=== PATIENT | female | born 1995 | race Caucasian/White ===

== ENCOUNTER 2020-01-10 09:40 | Emergency (ER) | payer OTHER, SELFPAY ==
[2020-01-10 09:52] VITALS: BP 109/69; PULSE 90; RESP 18; TEMP 36.8; O2SAT 97
--- NOTE | 2020-01-10 10:07 | ED.BACK ---
HPI - Back Pain/Injury General Chief Complaint: Back Pain/Injury Stated Complaint: Threw out back Time Seen by Provider: 01/10/20 10:01 Source: patient and RN notes reviewed Mode of arrival: ambulatory Limitations: no limitations Related Data Home Medications Medication Instructions Recorded Confirmed albuterol sulfate 2 inh INHALATION DIRECTED 01/10/20 01/10/20 drospirenone-ethinyl estradiol 1 tablet PO DAILY 01/10/20 01/10/20 [Jeetvi (28)] linaclotide [Linzess] 45 mcg PO DAILY 01/10/20 01/10/20 oxcarbazepine [Oxtellar XR] 600 mg PO DAILY 01/10/20 01/10/20 Allergies Allergy/AdvReac Type Severity Reaction Status Date / Time hydrocodone AdvReac Intermediate Vomiting Verified 12/02/16 09:37 Exam Narrative: Exam Narrative: GENERAL: Well-appearing, well-nourished, and in no acute distress. Patient moves from sitting to standing guarding her back. HEAD: Normocephalic, atraumatic. EYES: EOMI. No redness or drainage. Conjunctivae normal. ENT: Mucous membranes pink and moist. NECK: Normal AROM. CHEST: No respiratory distress. MUSCULOSKELETAL: No bony tenderness of the spine. No right Paraspinal muscle tenderness. No right SI joint tenderness. +Left lower lumbar paraspinal muscle tenderness that extends to the left SI joint.Distal sensation intact. Saddle sensation intact. Capillary refill normal. Pedal pulses normal. Foot push and pulls equal and strong. EXTREMITIES: Normal range of motion. No edema. SKIN: Warm, dry, no rash. Capillary refill normal. Normal skin turgor. NEURO: No focal deficits. Alert and oriented x3. Gait steady. PSYCH: Normal affect. No signs of depression or anxiety. Course Vital Signs Vital signs: Vital Signs Temperature 98.3 F 01/10/20 09:52 Pulse Rate 90 01/10/20 09:52 Respiratory Rate 18 01/10/20 09:52 Blood Pressure 109/69 01/10/20 09:52 Pulse Oximetry 97 01/10/20 09:52 Temperature 98.3 F 01/10/20 09:52 Pulse Rate 90 01/10/20 09:52 Respiratory Rate 18 01/10/20 09:52 Blood Pressure 109/69 01/10/20 09:52 Pulse Oximetry 97 01/10/20 09:52 Reviewed MDM - Back Pain/Injury Differential Diagnosis Differential diagnosis: Likely lumbar radiculopathy, sciatica, strain of lumbar region and thoracic back pain Critical Care Time Critical Care Time Critical Care Time: No Discharge Plan Discharge Clinical Impression: Strain of lumbar region Qualifiers: Encounter type: initial encounter Qualified Code(s): S39.012A - Strain of muscle, fascia and tendon of lower back, initial encounter Sciatica Qualifiers: Laterality: left Qualified Code(s): M54.32 - Sciatica, left side Patient Disposition: Home, Self-Care Condition: Stable Instructions: Sciatica (ED), Low Back Strain (ED) Additional Instructions: Please take the Flexeril and Prednisone as directed. Do not drive within 8 hours of taking the Flexeril as it can make you drowsy. Please start taking an anti-inflammatory such as Aleve or ibuprofen to help with pain and inflammation. No heavy lifting, exercise, running or jumping until symptoms resolve. Follow-up with your doctor in 1 week if symptoms are not improving. As discussed, if you do Develop numbness or tingling in your genitals or legs, or loss of your bowel or bladder control, please go to the ER immediately. Patient Language: Syriac Prescriptions: New cyclobenzaprine 10 mg tablet 10 mg PO TID PRN (Reason: muscle spasm) Qty: 20 RF: 0 prednisone 20 mg tablet 40 mg PO DAILY 5 Days Qty: 10 RF: 0 No Action albuterol sulfate 90 mcg/actuation HFA aerosol inhaler 2 inh INHALATION DIRECTED RF: 0 drospirenone-ethinyl estradiol [Jeetvi (28)] 3-0.02 mg tablet 1 tablet PO DAILY RF: 0 Linzess 145 mcg capsule 45 mcg PO DAILY RF: 0 Oxtellar XR 600 mg tablet extended release 24 hr 600 mg PO DAILY RF: 0 Follow-up/Referrals: Nikki,Darius Panda MD [Primary Care Provider] - Time of Disposit
== END 2020-01-10 10:15 | disposition home or self-care (01) ==
PROVIDERS: Emergency Provider Nurse Practitioner; PCP Internal Medicine
DX: S39.012A Strain of muscle, fascia and tendon of lower back, initial encounter (principal); M54.32 Sciatica, left side; X50.9XXA Other and unspecified overexertion or strenuous movements or postures, initial encounter; Y93.B9 Activity, other involving muscle strengthening exercises
CPT/HCPCS: 99203; G0463

== ENCOUNTER 2020-11-23 09:18 | Emergency (ER) | payer OTHER, SELFPAY ==
--- NOTE | ~2020-11-23 | CT_ITS ---
EXAMINATION: CT abdomen pelvis w con DATE: 11/23/2020 11:37 INDICATION: Right lower quadrant abdominal pain. TECHNIQUE: Computed tomography (CT) of the abdomen and pelvis was performed with 100 mL Omnipaque 350 intravenous contrast. Automated exposure control and iterative reconstruction technique were employe d. The dose-length product was 440.62 mGy-cm. COMPARISON: None. FINDINGS: The visualized portions of the lung bases demonstrate minimal atelectasis. No pleural effus ion. The heart size is normal. No pericardial effusion. The liver, gallbladder, spleen, pancreas, adr enal glands, and kidneys are normal. There are no dilated loops of bowel. The appendix is not visuali zed. There are no pathologically enlarged lymph nodes. There is no free intraperitoneal fluid. There is a 3.3 cm hemorrhagic cyst in left ovary with fluid/fluid level. There is mild lumbar spondylosis. IMPRESSION: 1. 3.3 cm hemorrhagic cyst in left ovary. Reviewed, dictated and finalized at location B.
--- NOTE | ~2020-11-23 | US_ITS ---
EXAMINATION: US abdomen complete DATE: 11/23/2020 10:55 INDICATION: Abdominal pain. TECHNIQUE: Multiple grayscale and Doppler ultrasound images of the abdomen were obtained. COMPARISON: None FINDINGS: The visualized portions of the head and body of the pancreas are normal. The liver is hamilton l without focal lesion. There is normal flow in main portal vein. The gallbladder is normal in size. No gallstones or gallbladder wall thickening. There was no sonographic Henry sign. The common duct i s normal and measures 2 mm. Abdominal aorta is normal in caliber. Inferior vena cava is normal. The k idneys are normal in size. The spleen is normal in size. IMPRESSION: 1. Normal complete abdomen ultrasound. Reviewed, dictated and finalized at location B.
[2020-11-23 09:27] VITALS: BP 112/75; PULSE 74; RESP 20; TEMP 36.6; O2SAT 100
--- NOTE | 2020-11-23 09:42 | PC.NURSE ---
Arrives ambulatory steady gait from triage accompanied by mother, c/o recent R side abd pain and tenderness, was sent by [facility] for imaging (hx endometriosis, ovarian cysts). +nausea -V/D, states abd pain worse when lying flat. Denies urinary s/s, +intermittent chills
--- NOTE | 2020-11-23 10:13 | PC.NURSE ---
Pt off floor to US via WC
[2020-11-23 10:23] LABS: Basophils Percent Auto 0.6 % (0.2-1.2); Eosinophils Absolute Auto 0.5 K/mm3 (0-0.3); Eosinophils Percent Auto 8.7 % (0-4.4); Hematocrit 41.2 % (37.0-47.0); Hemoglobin 13.9 g/dL (12.0-15.0); Immature Granulocyte Absolute 0.01 K/mm3 (0.00-0.031); Immature Granulocyte Percent A 0.2 % (0-0.5); Lymphocytes Absolute Auto 1.37 K/mm3 (0.9-3.2); Lymphocytes Percent Auto 26.4 % (18.3-44.2); Mean Corpuscular HGB Conc 33.7 g/dl (32-36); Mean Corpuscular Hemoglobin 29.6 pg (26-34); Mean Corpuscular Volume 87.8 fl (80-100); Mean Platelet Volume 12.6 fl (7.4-10.4); Monocytes Absolute Auto 0.5 K/mm3 (0.1-0.6); Monocytes Percent Auto 8.7 % (2.6-8.5); Neutrophils Absolute Auto 2.9 K/mm3 (1.3-6.7); Neutrophils Percent Auto 55.4 % (45.5-73.1); Platelet Count Result 138 k/mm3 (150-375); Red Blood Count 4.69 M/mm3 (4.2-5.4); Red Cell Distribution Width 12.3 % (11.5-14.5); White Blood Count 5.2 K/mm3 (4.5-10.0)
[2020-11-23 10:29] LABS: Add Urine Microscopic? YES; Appearance Urine Cloudy (Clear); Bacteria Urine Trace /hpf; Bilirubin Urine Negative (Negative); Blood Urine Negative (Negative); Color Urine Yellow (Yellow); Glucose Urine UA Negative (Negative); Ketones Urine Negative (Negative); Leukocyte Esterase Ur Negative LEU/UL (Negative); Mucus Urine Rare /lpf; Nitrate Urine Negative (Negative); Protein Urine 1+ mg/dL (Negative); RBC Urine 0-2 /hpf (0-2); Specific Grav Ur 1.023 (1.001-1.035); Squamous Epithelial Cell Urine Many /hpf (Few); Urobilinogen Urine Negative mg/dL (<2.0); WBC Urine 0-3 /hpf
[2020-11-23 10:37] LABS: Alanine Aminotransferase 22 U/L (4-35); Albumin Level 4.4 g/dL (3.5-5.1); Alkaline Phosphatase 62 U/L (38-126); Anion Gap 5 mmol/L (8-16); Aspartate Amino Transferase 30 U/L (14-36); Bilirubin,Total 0.1 mg/dL (0.2-1.3); Blood Urea Nitrogen 10 mg/dL (7-17); Calcium 9.4 mg/dL (8.4-10.2); Carbon Dioxide 27 mmol/L (22-30); Chloride 106 mmol/L (98-107); Estimated CRCL calculation 103 ml/min; Estimated Glomerular Filt Rate > 60; Glucose 87 mg/dL (65-105); Lipase 68 U/L (23-300); Potassium 4.1 mmol/L (3.4-5.0); Sodium 138 mmol/L (137-145)
[2020-11-23] MEDS: SODIUM CHLORIDE 0.9% IV 1,000 ML 999 ML IV CONT (10:55)
[2020-11-23] MEDS: ONDANSETRON INJ 4 MG/2 ML VIAL IV PUSH (10:56)
[2020-11-23] MEDS: FAMOTIDINE 20 MG/2 ML VIAL IV PUSH (10:56)
[2020-11-23 11:13] VITALS: BP 103/61; PULSE 63; RESP 18; O2SAT 98
--- NOTE | 2020-11-23 11:25 | PC.NURSE ---
Pt off floor to CT via cart. ED PA aware pt stated only upper abd was imaged in US
[2020-11-23 12:20] VITALS: BP 111/59; PULSE 71; RESP 17; O2SAT 100
--- NOTE | 2020-11-23 12:23 | ED.GENADULT ---
HPI - General Adult General Chief complaint: Abdominal Pain Stated complaint: ovarian cyst, rlq abd pain Time Seen by Provider: 11/23/20 09:31 Source: patient, family and RN notes reviewed Mode of arrival: ambulatory Limitations: no limitations History of Present Illness HPI narrative: Patient is a 25-year-old female who presents to emergency department for evaluation of abdominal pain that is generalized coupled with loose stools and nausea and chills patient has history of endometriosis and ovarian cyst followed by Dr. Sonny Aparicio they had contacted his office and were restricted to come to the emergency department for evaluation. Patient notes that the pain originates in the right lower quadrant of the abdomen and then radiates upwards. Patient is not taken anything for her symptoms and on arrival in the emergency department is in no distress and does not appear uncomfortable patient denies vaginal bleeding does note some clear discharge which she states is typical for her. Denies urinary symptoms rectal bleeding or melena Related Data Home Medications Medication Instructions Recorded Confirmed albuterol sulfate 2 inh INHALATION DIRECTED 01/10/20 01/10/20 drospirenone-ethinyl estradiol 1 tablet PO DAILY 01/10/20 01/10/20 [Gianvi (28)] linaclotide [Linzess] 45 mcg PO DAILY 01/10/20 01/10/20 oxcarbazepine [Oxtellar XR] 600 mg PO DAILY 01/10/20 01/10/20 Allergies Allergy/AdvReac Type Severity Reaction Status Date / Time hydrocodone AdvReac Intermediate Vomiting Verified 12/02/16 09:37 Review of Systems Review of Systems: All systems reviewed & are unremarkable except as noted in HPI and below PMFSH Past Medical History Medical History (Updated 11/23/20 @ 12:31 by Israel Monte PA-C) Endometriosis Surgical History Surgical History (Updated 11/23/20 @ 12:26 by Israel Monte PA-C) History of laparoscopy Social History Social History (Updated 11/23/20 @ 12:26 by Israel Monte PA-C) Smoking status: Never smoker Gender identity (if verbalized by the patient): Female Exam Narrative: Exam Narrative: GENERAL: Well-appearing, well-nourished, and in no acute distress. HEAD: Normocephalic, atraumatic. EYES: PERRLA and EOMI. ENT: Nares clear, no rhinorrhea or epistaxis. Mucous membranes moist. CHEST: Clear to auscultation. No respiratory distress. No wheezes rales or rhonchi HEART: Regular rate and rhythm. No murmur heard. Normal peripheral pulses. ABDOMEN: Soft, generalized tenderness of the abdomen, nondistended EXTREMITIES: Normal range of motion. No edema. SKIN: Warm, dry, no rash. NEURO: No focal deficits. Alert and oriented x3. PSYCH: Normal mood and affect. Course Course Emergency Course: Patient present with her mother in the room she was hydrated and given medications in the emergency department with improvement she is afebrile nontoxic-appearing no distress ABCs and vital signs are intact and stable patient aware of discussion with her power bender operator Dr. Sonny Aparicio who was notified of her condition and presentation and findings and would like for her to follow-up outpatient. Patient likely with ovarian cyst. Patient was evaluated with ultrasound and CAT scan. The blood work and the ultrasound were unremarkable. Patient was scanned to reassure that there was no other further etiology in the abdomen for her findings given that she did have right lower quadrant pain and concern for possible appendicitis. Patient agrees to follow-up on an outpatient basis. The diarrhea that she is experiencing and nausea and chills could be related to irritation of the abdomen from the ovarian cyst. She has been given strict instructions and reasons to return to the emergency department and agrees with this plan. Patient lives at home with her mother who will help care for her Consultations Consultation #1: Discussed case with Dr. Balderrama who will follow the patient in clinic Date: 11/23/20 Time: 12:28
[2020-11-23 12:37] VITALS: BP 111/60; PULSE 61; RESP 20; O2SAT 99
== END 2020-11-23 12:39 | disposition home or self-care (01) ==
PROVIDERS: Emergency Medicine Emergency Medical Services; Emergency Provider Emergency Medicine; PCP Internal Medicine
DX: N83.202 Unspecified ovarian cyst, left side (principal); N80.9 Endometriosis, unspecified
CPT/HCPCS: 36415; 74177; 76700; 80053; 81001; 81025; 83690; 85025; 96361; 96374; 96375; 99284; J0131; J2405; J7030; Q9967

== ENCOUNTER → 2020-12-01 04:47 | Outpatient (CLI) | payer OTHER, SELFPAY ==
[2020-12-01 20:06] LABS: SARS-CoV-2 RNA PCR Negative
== END ==
PROVIDERS: PCP Internal Medicine; Visit Provider Obstetrics & Gynecology
DX: Z01.812 Encounter for preprocedural laboratory examination (principal); Z20.822 Contact with and (suspected) exposure to COVID-19
CPT/HCPCS: C9803; U0003; U0005

== ENCOUNTER 2020-12-01 09:51 | Outpatient (CLI) | payer OTHER, SELFPAY | END 2020-12-01 09:52 | disposition home or self-care (01) | LOC: ANHSURGERY 09:54 | PROVIDERS: PCP Internal Medicine; Visit Provider Obstetrics & Gynecology | DX: Z01.812 Encounter for preprocedural laboratory examination (principal); R10.2 Pelvic and perineal pain | CPT/HCPCS: 36415; 86850; 86900; 86901 ==

== ENCOUNTER 2020-12-04 02:25 | Day surgery (SDC) | payer OTHER, SELFPAY ==
[2020-11-25 13:29] VITALS: BMI 23.3
--- NOTE | 2020-12-01 12:59 | PM.IMHP ---
H&P: HPI History of Present Illness Date/Time: 12/01/20 12:59 4-year-old 0 admitted for diagnostic laparoscopy. She has pain discomfort and dyspareunia. She has had negative STD testing. She had an ultrasound that showed a 3.3cm hemorrhagic cyst in the left ovary. Her pain has been unrelenting. She received the ACOG handout entitled laparoscopy. Risks and benefits including exclusive of , aspiration pneumonia, bleeding, transfusion, perforation to bowel, bladder, ureters, or other internal organs with need for open laparotomy reviewed. She had all questions answered in asked to proceed Chief Complaint: chronic pelvic pain and dyspareunia Review of Systems Review of Systems: All systems reviewed & are unremarkable except as noted in HPI and below PMFSH Past Medical History Medical History Endometriosis Surgical History Surgical History History of laparoscopy Social History Social History Smoking status: Never smoker Alcohol intake: never Substance use: never Substance use type: does not use Gender identity (if verbalized by the patient): Female Spiritual care concerns: No Meds Home Medications and Allergies Home Medications Medication Instructions Recorded Confirmed Type albuterol sulfate 2 inh INHALATION Q6H PRN 01/10/20 11/25/20 History cyclobenzaprine 10 mg PO TID PRN #20 tablet 01/10/20 11/25/20 Rx drospirenone-ethinyl estradiol 1 tablet PO DAILY 01/10/20 11/25/20 History [Gianvi (28)] oxcarbazepine [Oxtellar XR] 600 mg PO DAILY 01/10/20 11/25/20 History bupropion HCl 150 mg PO DAILY 11/25/20 11/25/20 History Allergies Allergy/AdvReac Type Severity Reaction Status Date / Time hydrocodone AdvReac Intermediate Vomiting Verified 11/25/20 13:24 Exam Const: General: no acute distress Eyes: General: appearance normal, both eyes and all related structures Neck: Neck: supple and no JVD Thyroid: thyroid normal Resp: Effort & Inspection: normal respiratory effort Auscultation: clear to auscultation bilaterally Cardio: Rate: regular rate Rhythm: regular rhythm GI: Inspection: non-distended GI Palp: Yes Soft to palpation, No Tenderness to palpation present (GI) and No Guarding due to palpation present (GI) Auscultation: normal bowel sounds : External Female Exam: normal external appearance Speculum Exam - Vagina: normal appearance of the vagina Speculum Exam - Cervix: normal appearance of the cervix Bimanual exam- vagina & uterus: non-tender Bimanual Exam- Adnexa, other: adnexae mobile and Adnexal mass present on the left Skin: General skin exam: no rashes or lesions noted Extrem: General: normal to inspection and no edema Psych: Mental Status: mental status grossly normal Affect: normal affect Assessment and Plan Additional Plan impression: Left ovarian cyst and chronic and severe pelvic pain Plan: Diagnostic laparoscopy
--- NOTE | 2020-12-03 12:46 | WPDANESEPPF ---
Anes - Initial Pre Proc Eval Procedure: Operation Date: 12/04/20 12:30 Proposed Procedures p Diagnostic Laparoscopy - Blayne Andrew MD Date/Time: 12/03/20 12:46 Surgeon: Blayne Andrew MD Pre Op Diagnosis: pelvic pain Patient Data Age: 25 Gender: F Height: 1.78 m Weight: 73.9 kg Allergies Allergy/AdvReac Type Severity Reaction Status Date / Time hydrocodone AdvReac Intermediate Vomiting Verified 12/04/20 11:35 Home Medications Medication Instructions Recorded Confirmed Type albuterol sulfate 2 inh INHALATION Q6H PRN 01/10/20 12/04/20 History cyclobenzaprine 10 mg PO TID PRN #20 tablet 01/10/20 12/04/20 Rx drospirenone-ethinyl estradiol 1 tablet PO DAILY 01/10/20 12/04/20 History [Jeetvi (28)] oxcarbazepine [Oxtellar XR] 600 mg PO DAILY 01/10/20 12/04/20 History bupropion HCl 150 mg PO DAILY 11/25/20 12/04/20 History oxycodone-acetaminophen [Percocet] 1 tablet PO Q4H PRN #20 tablet 12/04/20 Rx Patient hx anesthesia problems: none Family hx anesthesia problems: none PMFSH Past Medical History Medical History (Updated 12/04/20 @ 06:46 by Blayne Andrew MD) Anxiety Asthma Depression Endometriosis Epilepsy Surgical History Surgical History History of laparoscopy Social History Social History Smoking status: Never smoker Alcohol intake: never Substance use: never Substance use type: does not use Living arrangements: with family Gender identity (if verbalized by the patient): Female Spiritual care concerns: No Anes - Eval Final PreProcedure Day of Procedure 12/03/20 12:46 Patient weight: normal Heart: regular rate and rhythm Lungs: clear to auscultation and normal air movement Airway: Mallampati scale class II Neurological: alert and oriented Last oral intake: >/= 8 hours ASA classification: III Emergent: no Anesthetic plan: proceed Anesthesia type and monitoring: general ETT and standard monitoring Informed Consent: The patient's anesthetic plan and its attendant risks and benefits were discussed with the patient/family/POA. Questions were solicited and answers provided to the satisfaction of the patient/family/POA.
[2020-12-04] VITALS (8 sets, daily range): BP systolic 97–120; BP diastolic 59–75; PULSE 58–86; RESP 11–16; TEMP 36.3–37; O2SAT 98–100
--- NOTE | 2020-12-04 06:44 | WPDHPUPDATE1 ---
History and Physical Update Update Date/Time: 12/04/20 06:44 History and Physical has been reviewed, including an updated exam of the patient. There are NO changes in the patient's condition. Risks, benefits, and alternatives have been discussed and questions answered. Patient agrees to proceed with procedure.
[2020-12-04] MEDS: ACETAMINOPHEN 500 MG TABLET 1000 MG PO (11:19)
[2020-12-04] MEDS: KETOROLAC 15 MG/ML VIAL (*BKC) IV PUSH (11:19)
[2020-12-04] MEDS: LACTATED RINGERS 1,000 ML 30 ML IV CONT ×2 (11:20→13:24)
[2020-12-04] MEDS: SCOPOLAMINE 1.5 MG PATCH TRANSDERM (12:07)
[2020-12-04] MEDS: FAMOTIDINE 20 MG/2 ML VIAL IV PUSH (12:08)
--- NOTE | 2020-12-04 13:14 | PM.PROC ---
Procedure Note - Detailed Date of procedure: 12/04/20 Pre-op diagnosis: pelvic pain Surgeon: Blayne Andrew MD Postop diagnosis: Pelvic pain/endometriosis/left hemorrhagic cyst Anesthesia: General endotracheal Procedure: Laparoscopy/destruction of left ovarian cyst/destruction of endometriosis Complications: None Findings: A large hemorrhagic cyst on the left. Normal-appearing ovaries and tubes. Small area of endometriosis along the left and right uterosacral ligament EBL: 5cc Description of procedure: Patient was prepped and draped in the normal sterile fashion placed in dorsal lithotomy position. Under excellent general endotracheal anesthesia weighted speculum placed posterior fornix vagina. Anterior lip of the cervix was grasped with a single-tooth tenaculum. The Brooks's cannula was inserted in the cervix and attached to the single-tooth. This was to be used later for uterine manipulation. The bladder emptied of clear urine. The weighted speculum was removed and gloves were changed. An infraumbilical incision made and the Veress needle passed in the abdomen. The abdomen filled with CO2 gas to 15 mercury. The 5mm trocar advanced under direct visualization assuring no injury. The patient placed in Trendelenburg and a suprapubic incision made. The 5mm trocar advanced under direct visualization assuring no injury. The above findings were seen. [id number] of serosanguineous fluid was in the cul-de-sac and this was irrigated. Small areas of endometriosis were seen along the right and left uterosacral ligament and these were cauterized at 35 w per 2nd with monopolar cautery. A large hemorrhagic cyst was seen on the left and this was opened in linear in fashion and drained of bloody fluid. Irrigation again undertaken. No other abnormalities were seen. The lower site removed. The gas removed from the abdomen. The upper site removed and the incisions closed with 4 O Monocryl and glue. The instruments removed from the vagina. The patient went to recovery in satisfactory condition. All sponge, needle, instrument counts were correct. There were no immediate complications
[2020-12-04] MEDS: fentaNYL CITRATE INJ (*CRX) 100 MCG/2 ML VIAL 25 MCG IV PUSH ×2 (14:02→14:05)
[2020-12-04] MEDS: oxyCODONE HCL (*CRX) 5 MG TAB IR PO (14:42)
== END 2020-12-04 15:25 | disposition home or self-care (01) ==
PROVIDERS: PCP Internal Medicine; Visit Provider Obstetrics & Gynecology
PROC: (CPT 49320; principal; 2020-12-04 12:30)
DX: R10.2 Pelvic and perineal pain (principal); N80.3 Endometriosis of pelvic peritoneum; N83.202 Unspecified ovarian cyst, left side; G40.909 Epilepsy, unspecified, not intractable, without status epilepticus; J45.909 Unspecified asthma, uncomplicated; F41.8 Other specified anxiety disorders; Z79.51 Long term (current) use of inhaled steroids
CPT/HCPCS: 58662; 36415; 86850; 86900; 86901; A9270; C9803; J0330; J1100; J1885; J2250; J2405; J2704; J3010; J7030; J7120; U0003; U0005

== ENCOUNTER 2022-01-01 19:26 | Emergency (ER) | payer BC, SELFPAY ==
[2022-01-01 19:35] VITALS: BP 107/74; PULSE 91; RESP 18; TEMP 36.9; O2SAT 100
--- NOTE | 2022-01-01 19:35 | ED.EAR ---
HPI - Ear Problem General Stated complaint: Ear Problem Time Seen by Provider: 01/01/22 19:36 Source: patient Mode of arrival: ambulatory Limitations: no limitations History of Present Illness HPI Narrative: Ms. Carrion is a 26-year-old female patient presenting to the clinic today with complaints of right ear discomfort. She reports that she felt as though she had water in her ear from swimming and she used a Q-tip and that made her symptoms worse. She denies any fever or chills Related Data Home Medications Medication Instructions Recorded Confirmed drospirenone 3 mg-ethinyl 1 tablet PO DAILY 01/10/20 12/04/20 estradiol 0.02 mg tablet (Gianvi (28)) oxcarbazepine 600 mg 600 mg PO DAILY 01/10/20 12/04/20 tablet,extended release 24 hr (Oxtellar XR) bupropion HCl 150 mg 24 hr tablet, 150 mg PO DAILY 11/25/20 12/04/20 extended release Allergies Allergy/AdvReac Type Severity Reaction Status Date / Time latex Allergy Unknown Verified 01/01/22 19:41 hydrocodone AdvReac Intermediate Vomiting Verified 01/01/22 19:40 Review of Systems Review of Systems: Pertinent positives per HPI. Patient denies any fever, chills, rash, headache, visual changes, dizziness, cough, runny nose, sore throat, shortness of breath, chest pain, palpitations, nausea, vomiting, diarrhea, constipation, abdominal pain, or any urinary issues. PMFSH Past Medical History Medical History (Updated 01/01/22 @ 19:47 by Michael Holcomb APRN) Anxiety Asthma Depression Endometriosis Epilepsy Surgical History Surgical History History of laparoscopy Social History Social History Smoking status: Never smoker Alcohol intake: never Substance use: never Substance use type: does not use Gender identity (if verbalized by the patient): Female Spiritual care concerns: No Comments At the time of my signature, I reviewed and agree with the nursing past medical, surgical, social, and family history. There is no relevant family history pertinent to the patient complaint. Exam Narrative: General: Well-developed, well nourished, in no apparent distress Head: Normocephalic, atraumatic Eyes: Pupils equally round and reactive to light bilaterally, EOM intact, sclera and conjunctive clear, no discharge, lids normal Ears: Left TMs intact and clear, left ear canals clear, right ear canal obstructed with cerumen, ear lavage performed, ear lavage successful ,right TM intact and clear,no drainage, grossly hearing normal. Nose: Nares patent, no discharge, no inflammation, no sinus tenderness. Mouth: Oropharynx without lesions or masses, good dentition, MMM. Neck: Supple, trachea midline, no enlargement of anterior or posterior cervical nodes, no thyroid masses or goiter palpable. Cardio: Regular rate and rhythm, s1 and s2 normal, no murmur appreciated. Resp: Clear to auscultation bilaterally anteriorly and posteriorly, no rhonchi, rales, wheezing or rubs Course Course Emergency Course: Portions of this record may have been created with voice recognition software. Level of Care: Express Care Visit Vital Signs Vital signs: Vital signs reviewed Procedures Ear Wax Removal Right Ear: Ear Wax Removal Date: 01/01/22 Ear Wax Removal Time: 19:48 Results: Re-examined: cerumen removed completely TM Examination: TM(s) intact, normal appearance Ear Canal Exam: atraumatic Patient Tolerated Procedure: well Complications: no problems Technique: ear canal irrigated Additional Comments: Verbal consent obtained for ear lavage. Ear lavage performed to the right ear. Ear lavage was successful and all cerumen was removed. Right TM intact and clear. No complication Medical Decision Making MDM Narrative Medical decision making narrative: At the time of visit patient
== END 2022-01-01 19:52 | disposition home or self-care (01) ==
PROVIDERS: Emergency Provider Nurse Practitioner Family; PCP Internal Medicine
DX: H61.21 Impacted cerumen, right ear (principal); J45.909 Unspecified asthma, uncomplicated; N80.9 Endometriosis, unspecified; G40.909 Epilepsy, unspecified, not intractable, without status epilepticus; F41.9 Anxiety disorder, unspecified; F32.A Depression, unspecified
CPT/HCPCS: 69209; 99212; G0463

== ENCOUNTER 2024-08-06 08:24 | Outpatient (CLI) | payer BC, SELFPAY ==
--- NOTE | ~2024-08-06 | XR_ITS ---
EXAMINATION: XR barium swallow DATE: 08/06/2024 09:06 INDICATION: Esophagitis. TECHNIQUE: The patient drank thick barium, gas-producing crystals, and thin barium. Fluoroscopic spot radiographs of the hypopharynx and esophagus were obtained. Fluoroscopy exposure time was 2.5 minut es. COMPARISON: None. FINDINGS: The pharynx is symmetric and without evidence of mass lesion or mucosal irregularity. The e sophagus is normal without mass or stricture. Esophageal motility is normal. There is no hiatal herni a. There was no gastroesophageal reflux with provocative maneuvers. IMPRESSION: 1. Normal esophagram. Reviewed, dictated and finalized at location A. ICULUM WRITER IMPRESSION: 1. Normal esophagram.
--- OUTSIDE RECORDS SUMMARY | 2024-08-08 16:12 | XMS_ITS | Clinical Summary ---
Author Organization [facility] Address [address] [place] [address] Care Team Providers Care Staff Field Engineer Name Role Phone Darius Jordan MD Primary Care Provider Allergies Active Allergy Reactions Criticality Noted Date Comments Amoxicillin Rash Medium 06/23/2024 Hydrocodone Nausea only,Vomiting Reaction: Nausea, Vomiting, Latex Rash Reaction: Rash, Venlafaxine Anxiety,Other (See comments) Reaction: anxiety, depression worse, insomnia, Medications albuterol HFA (ProAir HFA) 90 mcg/actuation inhalerIndication s:Mild intermittent asthma without complication Inhale 2 puff by inhalation route every 4-6 hours as needed PRN 1 each 11 3 Active escitalopram (LEXAPRO) 10 mg tablet Take 1 tablet (10 mg total) by mouth daily 30 tablet 11 4 Active lamoTRIgine (LaMICtal) 100 mg tabletIndications :Epilepsy with partial complex seizures (HCC) Take 1 tablet (100 mg total) by mouth daily 90 tablet 3 4 07/04/20 25 Active Active Problems Problem Noted Date Diagnosed Date Periumbilical abdominal pain 02/07/2023 Assessment & Plan (02/07/2023 8:47 AM CDT): New Not at goal Poct negative Ddx appendicitis, peptic ulcer Ct abdomen and pelvis w/o contrast stat and hold Continue pepcid, recommend nexium F/u in [address] results Other chest pain 03/24/2022 Assessment & Plan (02/07/2023 8:46 AM CDT): Unlikely ACS EKG in office normal Likely GI related Will get trop cmp mag and phos and address abdominal pain Assessment & Plan (03/24/2022 12:15 PM CDT): 2/2 to anxiety EKG normal Manage anxiety. See a/p on anxiety Chronic bilateral low back pain with left-sided sciatica 06/18/2021 Assessment & Plan (07/19/2021 8:40 AM INFORMATICA ARCHITECT): Stable Instructed to be mindful of activities that affect her back. Encouraged to strengthen her core to help with the back pain. Modify activity as tolerated Continue with anti-inflammatory medication prn Physical therapy starts this week If no improvement can make appointment with orthopedics for further management F/u prn Assessment & Plan (06/18/2021 8:54 AM INFORMATICA ARCHITECT): Xray in October showed degenerative disease. Ordered an MRI Referral to physical therapy Naproxen 500mg bid with food F/u in 1 month after physical therapy, if no improvement can consider referral to pain management or ortho depending on results of mri Current moderate episode of major depressive disorder without prior episode 04/12/2019 Assessment & Plan (04/15/2024 9:44 AM CDT): Continue lexapro 10 mg every day Follow up pcp Dysmenorrhea 02/07/2014 Overview (10/27/2016): Dysmenorrhea Asthma 01/07/2013 Overview (10/27/2016): Asthma Assessment & Plan (08/21/2017 10:58 AM INFORMATICA ARCHITECT): Prednisone to be taken in a tapered fashion. Albuterol nebulizers up to 3 times daily as needed. Patient has nebulizer machine at home. New script for solution sent to pharmacy. Close follow-up here with absolutely any change in, worsening, or non improvement in condition. Epilepsy with partial complex seizures 3 Overview (08/18/2017): 07/[address] Gamboa restarted oxycarbazepine and will see back Sep 2017 for repeat EEG; rec MRI brain. Assessment & Plan (04/15/2024 9:38 AM CDT): Stable continue lamictal 100 mg every day Following with neuro Assessment & Plan (01/22/2024 12:05 PM CDT): Stable continue lamictal 100 mg every day Following with neuro Assessment & Plan (11/30/2023 9:17 AM CDT): Continue neurology follow up Continue trileptal 300 mg bid or changes as per neuro Last note indicated increasing doses of lamictal and tapering off trileptal Recommend neuro f/u as indicated by them Anxiety 03/02/2012 Overview (10/27/2016): Anxiety Assessment & Plan (03/24/2022 12:15 PM CDT): Worried about flying Will send a few tablets of xanax for flying Increased wellbutrin to 300mg daily. (kept the 150mg so she can go back to 150mg if she does not like how it makes her feel) F/u w/ pcp Assessment & Plan (06/30/2017 2:55 PM INFORMATICA ARCHITECT): Controlled on current medication regimen. She states she is not taking BuSpar- never picked it up. She continues on fluoxetine 20 mg daily. She states things will settle down now that the finals are complete. Assessment & Plan (01/16/2017 2:32 PM CDT): Well controlled on current medication regimen. Patient will continue as previously directed. We sent her medications applying for a 90 day supply rather than 30 day supply for cost savings. Resolved Problems Problem Noted Date Diagnosed Date Resolved Date Abdominal discomfort 12/24/2021 10/2 022 Assessment & Plan (12/24/2021 10:01 AM CDT): LLQ Slightly improving Can continue with pepcid and avoiding greasy foods Possible IBS but no diarrhea or constipation so less likely Possibly Stress related Ct abdomen and pelvis w/o contrast, evaluate ovaries If progressively worsening will consider sending to GI Acute gastritis without hemorrhage 12/10/2021 12/24/2021 Assessment & Plan (12/10/2021 9:40 AM CDT): pepcid sent to the pharmacy to help with symptoms If no improvement will consider h. Pylori test If negative will start omeprazole for 8 weeks If no improvement will consider imaging and sending to GI. F/u in 2 weeks Papular rash, localized 03/17/2020 09/0 07/2019 Assessment & Plan (03/17/2020 2:08 PM CDT): Faint, papular rash w/o known etiology. Contact dermatitis VS milia crystallina. Recommending daily H2 antihistamine, p.r.n. Benadryl and topical, low potency corticosteroid cream b.i.d. times 10-14 days with further evaluation with ongoing sx. Utilizing hypoallergenic face washes and avoiding any use of makeup her facial cream recommended. S/Es of medication and precautions with steroid topical cream discussed. Achilles tendinitis of left lower extremity 08/29/2019 04/27/2021 Facial dermatitis 02/25/2019 04/27/2021 Assessment & Plan (02/25/2019 3:26 PM CDT): Trial of Eucrisa cream for suspected facial irritation from dryness/eczema. Hypoallergenic product use advised as well. Requesting to see hospice care sales consultant, , to further evaluate her without improvement Left lateral ankle pain 08/10/201804/16 Assessment & Plan (08/10/2018 11:15 AM INFORMATICA ARCHITECT): Grade 1-2 sprain verses avulsion fracture. Recommended compression.VIKAS wrap, heat, exercise modifications, NSAID use p.r.n. Monitoring of GERD, x-ray ruling out concerns of stress/avulsion fracture following up with additional management pending results of x-ray or with pain persisting over the next week. Abdominal pain, generalized 07/25/2018 04/27/2021 Assessment & Plan (08/10/2018 11:17 AM INFORMATICA ARCHITECT): Still nonspecific. Labs WNL and U/S normal. No desire for Ct at this time. Ddx includes: GERD, small duodenal ulcer, IBS, or possible gluten intolerance (NOT allergy). GI consultation for further review determine need for CT verses scope/stool testing. Pt was presented with foods high in gluten avoiding excessive intake of such products and alternatives. Trial of OTC H2 blockers if indicated. Dietary modifications for GERD. Further direction per GI Assessment & Plan (07/25/2018 12:08 PM INFORMATICA ARCHITECT): Urine dip was unremarkable in office today-will send off for culture to rule out concerns of pyuria. Labs ordered office today including pancreatic enzymes, CMP, CBC looking into possible etiologies. I did discuss ordering HCG level she again declined wanting this done. In moving forward beyond testing, I am recommending an abdominal ultrasound for further evaluation with a follow-up in 1 week. She will touch base with us after completing pelvic ultrasound in draw frame operator office have a sent to our office for review. Increasing diet as tolerated. Red flags discussed indicating need to call office or present to ER. Cough 08/21/2017 02/20/2018 Assessment & Plan (08/21/2017 10:57 AM INFORMATICA ARCHITECT): Influenza A negative and influenza B negative. Viral URI with cough 08/21/2017 018 Assessment & Plan (08/21/2017 10:58 AM INFORMATICA ARCHITECT): Influenza A negative and influenza B negative. Humidification, fluids, and rest were recommended. Patient may take Tylenol or ibuprofen as needed for fever, chills, and body aches. We discussed symptoms of, duration of, and treatment of viral illness. Symptom should run their course within 5-7 days. Patient has been encouraged to contact the office for follow-up with any change in, worsening, or non improvement in her condition. Acute URI 08/09/2017 02/20/2018 Assessment & Plan (08/09/2017 10:22 AM INFORMATICA ARCHITECT): Recent viral illness now with concern for bacterial involvement. I have recommended humidification, fluids, and rest. Patient was instructed to take antibiotic as directed. Patient was encouraged to take antibiotic with food. I have also recommended daily probiotic, yogurt or capsule, while on the antibiotic. She may continue Tylenol and ibuprofen as needed. She may continue [id number] cough and cold medication. Work release was provided for today and tomorrow. She should not return until she is on antibiotics and fever free for 24 hours. Sore throat 08/09/2017 02/20/2018 Assessment & Plan (08/09/2017 10:24 AM INFORMATICA ARCHITECT): Rapid strep negative. Back pain 08/09/2017 04/27/2021 Assessment & Plan (08/09/2017 10:23 AM INFORMATICA ARCHITECT): Urine sample will be submitted for a repeat urinalysis with reflex to microscopy and culture. Her back ache is associated with fever. She requests a urine be retested. Further direction pending results. She should anticipate a call from me regarding these results within 3 days of having testing completed. Seizure disorder ([facility]) 06/30/2017 1 Assessment & Plan (12/18/2018 2:15 PM CDT): Oxtellar medication refill today in office with prior prescription of 600 mg daily, consultation placed to Neurology and [facility] of their choice, . Pt is 1 year seizure free and does understand the limitation of not driving 6 months after seizure, certainly until consultation is in place she can F/U with us with any concerns regarding epilepsy in the interim Assessment & Plan (06/30/2017 2:54 PM INFORMATICA ARCHITECT): Patient is being followed by her neurologist, Dr. Crowe, at [facility]. She has been placed on Trileptal 300 mg twice daily. She was encouraged to follow up with her neurologist as previously directed. She understands she will need to refrain from driving for 6 months following seizure activity. She states she was already instructed of this per her neurologist. Abnormal findings in stool 01/16/2017 0 03/27/2018 Assessment & Plan (01/16/2017 2:32 PM CDT): Patient believe she is seeing worms in the stool. Patient was provided copious reassurance as this may be mucus mixed in with the stool. We will submit stool specimen for ova and parasite. Further direction pending these results. Infectious mononucleosis 02/11/201405/2018 Overview (10/27/2016): Sandoval Bruises easily 11/25/2013 03/27/2018 Overview (10/27/2016): Easy bruising Hamstring injury 06/27/2013 03/27/2018 Overview (10/27/2016): Hamstring injury Antinuclear factor positive 02/14/2013 04/27/2021 Overview (10/27/2016): WAGNER positive Migraine 01/07/2013 03/27/2018 Overview (10/27/2016): Migraine headache Atopic rhinitis 03/02/2012 04/27/2021 Overview (10/27/2016): Allergic rhinitis Perioral dermatitis 03/02/2012 03/27/20 Overview (10/27/2016): Perioral dermatitis Medical examinations/reports status 1997 08/10/2018 Overview (10/27/2016): Health care maintenance Encounters Date Type Department Care Team Description 08/06/2024 Orders Only [facility] [place] [address] [place] [address] Darius Jordan MD 07/30/2024 Telephone [facility] Epilepsy [address] [facility] 6th [place] [address] [place] [address] Yoandy Wilson III, MD Med Management 07/05/2024 Telephone [facility] Primary Care at [address] [phone] Darius Jordan MD 07/04/2024 4:15 PM INFORMATICA ARCHITECT Office Visit [facility] Primary Care at [address] [phone] Darius Jordan MD Annual physical exam (Primary Dx); BMI 22.0-22.9, adult; Mild intermittent asthma without complication; Chronic bilateral low back pain with left-sided sciatica; Current moderate episode of major depressive disorder without prior episode (HCC); Epilepsy with partial complex seizures (HCC) 06/24/2024 Telephone [facility] Primary Care at [address] [phone] Darius Jordan MD Medical Question/Miscellaneo us 06/23/2024 9:41 AM INFORMATICA ARCHITECT - 06/23/2024 11:59 PM INFORMATICA ARCHITECT Hospital Encounter [address] [address] Sore throat Discharge Disposition: Discharge to home or self care 06/23/2024 9:15 AM INFORMATICA ARCHITECT Office Visit [facility] Care at [address] [phone] Dorene Ceja NP Sore throat (Primary Dx); Nonintractable headache, unspecified chronicity pattern, unspecified headache type; Pharyngitis, unspecified etiology; Upper respiratory tract infection, unspecified type 05/09/2024 1:30 PM CDT Office Visit [facility] Primary Care at [address] [phone] Darius Jordan MD Chronic pharyngitis (Primary Dx); BMI 25.0-25.9,adult; Epilepsy with partial complex seizures (HCC); Current moderate episode of major depressive disorder without prior episode (HCC) 05/08/2024 Telephone [facility] Primary Care at [address] [phone] Lilibeth Day MA from Last 3 Months Immunizations Name Administration Dates Next Due DTP / HiB 1997,1997,1997 DTaP 02/22/2002, 2,07/31/1998,07/31,1997,1997,1997 ,1997,1997,1997 HPV, Quadrivalent 06/17/2008, 8,12/13/2007,12/12 HPV, Unspecified 06/17/2008,02/12/2008 Hep B Vaccine 04/10/1998,01/05/1998 Hep B, Adolescent or Pediatric 8,01/05/1998,1997,04/08,1997 HiB 07/31/1998,1997,1997 Hib (HbOC) 07/31/1998, 8,1997,05/08 Hib (PRP-OMP) 1997 IPV 02/22/2002,02/22/2002 Influenza, Quadrivalent, Spl it, Preservative Free, Intramuscular 04/29/2022,04/27/2021,06/26/2020 Influenza, Split 06/27/2013,06/01/2012 Influenza, Trivalent, IM (MDV) 3,06/01/2012,08/22/2011,08/22,04/23/2010,04/23/2010 Influenza, Unspecified 05/09/2024(Deferr ed: Patient Refused),04/15/2024(Deferred: Patient Refused),10/13/2023(Deferred: Patient Refused),10/13/2023(Deferred: Patient Refused),06/16/2023(Deferred: Patient Refused),02/07/2023(Deferred: Patient Refused),03/17/2020(Deferred: Patient Refused - provider not giving yet),08/29/2019(Deferred: Patient Refused),08/29/2019(Deferred: Patient Refused),04/16/2019(Deferred: Patient Refused),04/16/2019(Deferred: Patient Refused),04/16/2019(Deferred: Patient Refused),04/12/2019(Deferred: Patient Refused),02/25/2019(Deferred: Patient Refused - not available),12/18/2018(Deferred: Patient Refused),04/27/2018(Deferred: Patient Refused),04/16/2018(Deferred: Patient Refused),07/25/2001 MMR 02/22/2002, 2,07/31/1998,07/31 Meningococcal ACWY, Unspecified 03/05/2014 Meningococcal MCV4P (Menactra) 03/05/2014 Meningococcal Polysaccharide (Menomune) 12/22/2010,12/22/2010 OPV 07/31/1998, 9,1997,07/15,1997,1997 PPD TEST 03/28/2022, 2,05/20/2019,03/27 Pfizer SARS-CoV-2 Monovalent Vaccination (12+ Yrs) PURPLE 07/06/2021,10/10/2020,09/15/2020 Tdap 11/24/2008,11/24/2008 Varicella 03/05/2014, 4,04/10/2008,04/10 Surgical History Surgery Date Site/Laterality Comments OTHER SURGICAL HISTORY Asthma, childhood diagnosis: albuterol prn Medical History Medical History Date Comments Hx Other Medical Asthma, childho od diagnosis; Comments: [facility] 06/24/2016 - Family History Medical History Relation Name Comments Mitral valve prolapse Mother Mitral valve prolapse; Relation Name Status Comments Mother Social History Tobacco Use Types Packs/Day Years Used Date Smoking Tobacco: Never Smokeless Tobacco: Never Tobacco Cessation:Counseling Given: Not Answered Alcohol Use Standard Drinks/Week Comments No 0 (1 standard drink = 0.6 oz pur e alcohol) AUDIT-C Answer Date Recorded Q1: How often do you have a drink containing alc ohol? Never 06/16/2023 Q2: How many drinks containi ng alcohol do you have on a typical day when you are drinking? 1 or 2 06/16/2023 Q3: How often do you have six or more drinks on one occasion? Never 06/16/2023 PHQ-2 Answer Date Recorded PHQ-2 Total Score (If total score is 3 or more points, staff should administer the PHQ-9) 0 07/04/2024 Personal Safety Answer Date Recorded Have you ever been in or are you currently in a harmful physical or emotional relationship or is someone making you feel afraid or unsafe? Denies 05/25/2023 Comments No Sex and Gender Information Value Date Recorded Sex Assigned at Not on file Legal Sex Female 6:23 PM INFORMATICA ARCHITECT Gender Identity Female 09/14/2020 5:54 AM INFORMATICA ARCHITECT Sexual Orientation Straight 09/14/2020 5: 54 AM INFORMATICA ARCHITECT Obstetrics History Last Filed Vital Signs Vital Sign Reading Time Taken Comments Blood Pressure 118/70 07/04/2024 4:06 PM INFORMATICA ARCHITECT Pulse 72 07/04/2024 4:06 PM INFORMATICA ARCHITECT Temperature 36.6 ??C (97.8 ??F) 07/04/2024 4:06 PM CS T Respiratory Rate 16 07/04/2024 4:06 PM INFORMATICA ARCHITECT Oxygen Saturation 97% 07/04/2024 4:06 PM INFORMATICA ARCHITECT Inhaled Oxygen Concentration - - Weight 75.3 kg (166 lb) 07/04/2024 4:06 PM INFORMATICA ARCHITECT Height 177.8 cm (5' 10 ) 07/04/2024 4:06 PM INFORMATICA ARCHITECT Body Mass Index 23.82 07/04/2024 4:06 PM INFORMATICA ARCHITECT Plan of Treatment Health Maintenance Due Date Last Done Comments Hepatitis C Screening 1997 Pneumococcal vaccine <65 (1 of 2 - PCV) 2003 DTaP/Tdap/Td Vaccine (8 - Td or Tdap) 11/24/2018 11/24/2008, 11/24/2008, 02/22/2002, Additional history exists Cervical Cancer Screening 12/24/2020 12/25/2019 Covid-19 Vaccine (4 - 2023-2 5 season) 2024 07/06/2021, 10/10/2020, 09/15/2020 Influenza Vaccine (#1) 2024 , 04/27/2021, 06/26/2020, Additional history exists Depression Screening 07/04/2025 07/04/2024, 05/09/2024, 04/15/2024, Additional history exists Regular Well Visit/Exam 18-64 07/04/2025, 06/16/2023, 04/29/2022, Additional history exists HPV Vaccines Completed 06/17/2008, 08/2007, 02/12/2008, Additional history exists Varicella Vaccines Completed 03/05/2014, 0 03/05/2014, 04/10/2008, Additional history exists Procedures Procedure Name Priority Date/Time Associated Diagnosis Comments SCAN - RADIOLOGY/IMAGING 08/06/2024 THROAT CULTURE Routine 06/23/2024 9:41 AM INFORMATICA ARCHITECT Sore throat POCT RAPID STREP Routine 06/23/2024 9:23 AM INFORMATICA ARCHITECT Sore throat POC INFLUENZA A/B, COVID-19 ANTIGEN Routine 06/23/2024 9:21 AM INFORMATICA ARCHITECT Sore throat HM PAP SMEAR WITH HPV Routine 12/25/2019 from Last 3 Months or Most Recently Relevant to Health Maintenance Results * SCAN - RADIOLOGY/IMAGING (08/06/2024) Anatomical Region Laterality Modality Other us Darius Jordan MD Final R esult * Throat culture Throat (06/23/2024 9:41 AM INFORMATICA ARCHITECT) Report Final Report: No growth of pathogens. Comment:Testing performed by : [facility], [address] [place] [address] Throat 06/23/2024 9:41 AM INFORMATICA ARCHITECT 06/23/2024 4:50 PM INFORMATICA ARCHITECT Narrative KE ALLEN - 06/24/2024 12:16 PM INFORMATICA ARCHITECT Testing performed by [facility] ([phone]). us Dorene Ceja NP LAB MICROBIOLOGY - GENERAL ORDERABLES Final Result KE ALLEN [id number] [place] [address] * POCT rapid strep A (06/23/2024 9:23 AM INFORMATICA ARCHITECT) Rapid Strep A, POC Negative Negative Swab 06/23/2024 9:23 AM INFORMATICA ARCHITECT Dorene Ceja NP POINT OF CARE TEST ORDERAB LES Final Result * POC Influenza A/B, COVID-19 antigen (06/23/2024 9:21 AM INFORMATICA ARCHITECT) Influenza A Ag, POC Negative Negative [facility] Influenza B Ag, POC Negative Negative [facility] COVID-19 Ag POC Presumptive Negative Presumptive Negative, Invalid [facility] Nasal 06/23/2024 9:21 AM INFORMATICA ARCHITECT Dorene Ceja NP POINT OF CARE TEST ORDERAB LES Final Result Performing Organization Address City/State/[facility] Co de Phone Number [facility] [address] [address], [facility] * HM PAP SMEAR WITH HPV (12/25/2019) Historical Provider HEALTH MAINTENANCE Final Result from Last 3 Months or Most Recently Relevant to Health Maintenance [place] Advance Directives For more information, please contact: [phone] Documents on File Type Date Recorded Patient Global Sales Manager Expl anation ADVANCE DIRECTIVE 07/05/2017 Advance Di rective Checklist Care Teams Staff Field Engineer Relationship Specialty Start Date End Date Darius Jordan MD PCP - General 10/14/16
--- OUTSIDE RECORDS SUMMARY | 2024-08-08 16:12 | XMS_ITS | Referral Summary ---
Author Organization [facility] Address [address] [place] [address] Care Team Providers Care Cellular Tower Climber Name Role Phone Darius Jordan MD Primary Care Provider Encounters Date Type Department Care Team Description 08/06/2024 Orders Only [facility] Health Information Management [address] [place] [address] Darius Jordan MD 07/30/2024 Telephone [facility] Epilepsy [address] [facility] 6th [place] [address] [place] [address] Yoandy Wilson III, MD Med Management 07/05/2024 Telephone [facility] Primary Care at [address] [place] [phone] Darius Jordan MD 07/04/2024 4:15 PM LINOLEUM LAYER Office Visit [facility] Primary Care at [address] [place] [phone] Darius Jordan MD Annual physical exam (Primary Dx); BMI 22.0-22.9, adult; Mild intermittent asthma without complication; Chronic bilateral low back pain with left-sided sciatica; Current moderate episode of major depressive disorder without prior episode (HCC); Epilepsy with partial complex seizures (HCC) 06/24/2024 Telephone [facility] Primary Care at [address] [phone] Darius Jordan MD Medical Question/Miscellaneo us 06/23/2024 9:41 AM LINOLEUM LAYER - 06/23/2024 11:59 PM LINOLEUM LAYER Hospital Encounter [address] [address] Sore throat Discharge Disposition: Discharge to home or self care 06/23/2024 9:15 AM LINOLEUM LAYER Office Visit [facility] Care at [address] [place] [phone] Dorene Ceja NP Sore throat (Primary Dx); Nonintractable headache, unspecified chronicity pattern, unspecified headache type; Pharyngitis, unspecified etiology; Upper respiratory tract infection, unspecified type 05/09/2024 1:30 PM CDT Office Visit [facility] Primary Care at [address] [phone] Darius Jordan MD Chronic pharyngitis (Primary Dx); BMI 25.0-25.9,adult; Epilepsy with partial complex seizures (HCC); Current moderate episode of major depressive disorder without prior episode (HCC) 05/08/2024 Telephone [facility] Primary Care at [address] [phone] Lilibeth Day MA from Last 3 Months Allergies Active Allergy Reactions Criticality Noted Date Comments Amoxicillin Rash Medium 06/23/2024 Hydrocodone Nausea only,Vomiting Reaction: Nausea, Vomiting, Latex Rash Reaction: Rash, Venlafaxine Anxiety,Other (See comments) Reaction: anxiety, depression worse, insomnia, Medications albuterol HFA (ProAir HFA) 90 mcg/actuation inhalerIndication s:Mild intermittent asthma without complication Inhale 2 puff by inhalation route every 4-6 hours as needed PRN 1 each 3 Active escitalopram (LEXAPRO) 10 mg tablet Take 1 tablet (10 mg total) by mouth daily 30 tablet 4 Active lamoTRIgine (LaMICtal) 100 mg tabletIndications [...] 06/18/2021 Assessment & Plan (07/19/2021 8:40 AM LINOLEUM LAYER): Stable Instructed to be mindful of activities that affect her back. Encouraged to strengthen her core to help with the back pain. Modify activity as tolerated Continue with anti-inflammatory medication prn Physical therapy starts this week If no improvement can make appointment with orthopedics for further management F/u prn Assessment & Plan (06/18/2021 8:54 AM LINOLEUM LAYER): Xray in October showed degenerative disease. Ordered [...] Asthma Assessment & Plan (08/21/2017 10:58 AM LINOLEUM LAYER): Prednisone to be taken in a tapered [...] pcp Assessment & Plan (06/30/2017 2:55 PM LINOLEUM LAYER): Controlled on current medication regimen. She states [...] Diagnosed Date Resolved Date Abdominal discomfort 12/24/2021 022 Assessment & Plan (12/24/2021 10:01 AM [...] in 2 weeks Papular rash, localized 03/17/2020 090 07/2019 Assessment & Plan (03/17/2020 2:08 PM [...] use advised as well. Requesting to see automotive product specialist, , to further evaluate her without improvement Left lateral ankle pain 08/10/201804/16 Assessment & Plan (08/10/2018 11:15 AM LINOLEUM LAYER): Grade 1-2 sprain verses avulsion fracture. Recommended compression.VIKAS wrap, heat, exercise modifications, NSAID use p.r.n. Monitoring of GERD, x-ray ruling out concerns of stress/avulsion fracture following up with additional management pending results of x-ray or with pain persisting over the next week. Abdominal pain, generalized 07/25/2018 04/27/2021 Assessment & Plan (08/10/2018 11:17 AM LINOLEUM LAYER): Still nonspecific. Labs WNL and U/S normal. [...] GI Assessment & Plan (07/25/2018 12:08 PM LINOLEUM LAYER): Urine dip was unremarkable in office today-will [...] with us after completing pelvic ultrasound in installation and repair technician office have a sent to our office for review. Increasing diet as tolerated. Red flags discussed indicating need to call office or present to ER. Cough 08/21/2017 02/20/2018 Assessment & Plan (08/21/2017 10:57 AM LINOLEUM LAYER): Influenza A negative and influenza B negative. Viral URI with cough 08/21/2017 018 Assessment & Plan (08/21/2017 10:58 AM LINOLEUM LAYER): Influenza A negative and influenza B negative. [...] 02/20/2018 Assessment & Plan (08/09/2017 10:22 AM LINOLEUM LAYER): Recent viral illness now with concern for bacterial involvement. I have recommended humidification, fluids, and rest. Patient was instructed to take antibiotic as directed. Patient was encouraged to take antibiotic with food. I have also recommended daily probiotic, yogurt or capsule, while on the antibiotic. She may continue Tylenol and ibuprofen as needed. She may continue [id number] cough and cold medication. Work release was provided for today and tomorrow. She should not return until she is on antibiotics and fever free for 24 hours. Sore throat 08/09/2017 02/20/2018 Assessment & Plan (08/09/2017 10:24 AM LINOLEUM LAYER): Rapid strep negative. Back pain 08/09/2017 04/27/2021 Assessment & Plan (08/09/2017 10:23 AM LINOLEUM LAYER): Urine sample will be submitted for a repeat urinalysis with reflex to microscopy and culture. Her back ache is associated with fever. She requests a urine be retested. Further direction pending results. She should anticipate a call from me regarding these results within 3 days of having testing completed. Seizure disorder ([facility]) 06/30/2017 1 Assessment & Plan [...] interim Assessment & Plan (06/30/2017 2:54 PM LINOLEUM LAYER): Patient is being followed by her neurologist, Dr. Crowe, at [facility]. She has been placed on Trileptal [...] these results. Infectious mononucleosis 02/11/201405/2018 Overview (10/27/2016): Ritchie Bruises easily 11/25/2013 03/27/2018 Overview (10/27/2016): Easy bruising Hamstring injury 06/27/2013 03/27/2018 Overview (10/27/2016): Hamstring injury Antinuclear factor positive 02/14/2013 04/27/2021 Overview (10/27/2016): WAGNER positive Migraine 01/07/2013 03/27/2018 Overview (10/27/2016): Migraine headache Atopic rhinitis 03/02/2012 04/27/2021 Overview (10/27/2016): Allergic rhinitis Perioral dermatitis 03/02/2012 03/27/20 Overview (10/27/2016): Perioral dermatitis Medical examinations/reports status 1997 08/10/2018 Overview (10/27/2016): Health care maintenance Immunizations Name Administration Dates Next Due DTP [...] PURPLE 07/06/2021,10/10/2020,09/15/2020 Tdap 11/24/2008,11/24/2008 Varicella 03/05/2014, 4,04/10/2008,04/10 Social History Tobacco Use Types Packs/Day Years [...] on file Legal Sex Female 6:23 PM LINOLEUM LAYER Gender Identity Female 09/14/2020 5:54 AM LINOLEUM LAYER Sexual Orientation Straight 09/14/2020 5: 54 AM LINOLEUM LAYER Last Filed Vital Signs Vital Sign Reading Time Taken Comments Blood Pressure 118/70 07/04/2024 4:06 PM LINOLEUM LAYER Pulse 72 07/04/2024 4:06 PM LINOLEUM LAYER Temperature 36.6 ??C (97.8 ??F) 07/04/2024 4:06 PM CS T Respiratory Rate 16 07/04/2024 4:06 PM LINOLEUM LAYER Oxygen Saturation 97% 07/04/2024 4:06 PM LINOLEUM LAYER Inhaled Oxygen Concentration - - Weight 75.3 kg (166 lb) 07/04/2024 4:06 PM LINOLEUM LAYER Height 177.8 cm (5' 10 ) 07/04/2024 4:06 PM LINOLEUM LAYER Body Mass Index 23.82 07/04/2024 4:06 PM LINOLEUM LAYER Plan of Treatment Not on file Procedures Procedure Name Priority Date/Time Associated Diagnosis Comments SCAN - RADIOLOGY/IMAGING 08/06/2024 THROAT CULTURE Routine 06/23/2024 9:41 AM LINOLEUM LAYER Sore throat POCT RAPID STREP Routine 06/23/2024 9:23 AM LINOLEUM LAYER Sore throat POC INFLUENZA A/B, COVID-19 ANTIGEN Routine 06/23/2024 9:21 AM LINOLEUM LAYER Sore throat HM PAP SMEAR WITH HPV Routine 12/25/2019 from Last 3 Months or Most Recently Relevant to Health Maintenance Results * SCAN - RADIOLOGY/IMAGING (08/06/2024) Anatomical Region Laterality Modality Other us Darius Jordan MD Final R esult * Throat culture Throat (06/23/2024 9:41 AM LINOLEUM LAYER) Report Final Report: No growth of pathogens. Comment:Testing performed by : [facility], [address] [facility], [place]., [address] Throat 06/23/2024 9:41 AM LINOLEUM LAYER 06/23/2024 4:50 PM LINOLEUM LAYER Narrative KE ALLEN - 06/24/2024 12:16 PM LINOLEUM LAYER Testing performed by [facility] ([phone]). Dorene Ceja NP LAB MICROBIOLOGY - [place] [address] [place] [facility] [place] [address] * POCT rapid strep A (06/23/2024 9:23 AM LINOLEUM LAYER) Rapid Strep A, POC Negative Negative Swab 06/23/2024 9:23 AM LINOLEUM LAYER Dorene Ceja NP POINT OF CARE TEST ORDERAB LES Final Result * POC Influenza A/B, COVID-19 antigen (06/23/2024 9:21 AM LINOLEUM LAYER) Influenza A Ag, POC Negative Negative [facility] Influenza B Ag, POC Negative Negative [facility] COVID-19 Ag POC Presumptive Negative Presumptive Negative, Invalid [facility] Nasal 06/23/2024 9:21 AM LINOLEUM LAYER Dorene Ceja NP POINT OF CARE TEST ORDERAB LES Final Result [facility] [address] [address] * HM PAP SMEAR WITH HPV (12/25/2019) Historical Provider MD HEALTH MAINTENANCE Final Result from Last 3 Months or Most Recently Relevant to Health Maintenance [place] Advance Directives For more information, please contact: [phone] Documents on File Type Date Recorded Patient Strike Planning Applications Expl anation ADVANCE DIRECTIVE 07/05/2017 Advance Di rective Checklist Care Teams Cellular Tower Climber Relationship Specialty Start Date End Date Darius Jordan MD PCP - General 10/14/16
--- OUTSIDE RECORDS SUMMARY | 2024-08-08 16:13 | XMS_ITS | Continuity of Care Document ---
Author Organization [facility] Address [address] [place] [address] [place] [address] Phone Care Team Providers Care Deputy Sheriff Custody Name Role Phone Sam Dumont MD Unavailable Unavailable Allergies, Adverse Reactions, Alerts Substance Reaction Status Criticality HYDROCODONE BITARTRATE Active No In formation acetaminophen Active No Information Medications Medication Instructions Dosage Effective Dates (start - stop) Status Comments Aviane 0.1 mg-20 mcg tablet take 1 tablet by oral route every day 1.00 tablet - Active Procedures Procedure Date Eye Exam, New Patient Advance Directives Directive Yes / No Effective Date File Name No Information Encounters Encounter Description Practice Location Reason(s) For Visit Diagnoses Date Provider Providers Copied on Encounter [facility], [address] [place] [address] [address], [place], [place], [id number], [place] tel:[phone] ANGEL LUIS GARIBAY Professional Difficulty reading (chief complaint) Routine eye exam [address]argas. [address] [facility] [place], [id number], [place]. tel:[phone] Referring Provider: Derrek Panda, [address] [facility] [address], [place], [address] . tel:[phone] [facility], [address] [place] [address] [address], [place], [place], [id number], [place] tel:[phone] SEC Efrem GARIBAY Professional No Information Jaime Anglin. [address], [address], [place], [place], [id number], [place]. tel:[phone] Family History Family Member Type Diagnosis Age At Onset Problem (finding) Family history of Diabe hernando mellitus Payers Payer name Insurance type Covered democrat ID Khushboo lugo(s) [facility] [id number] Social History Type Description Quantity Date Captured Comments Alcohol Use Details Unknown Caffeine Use Details Unknown Tobacco Use Status No Information Smoking Status No Information Sex Female Chief Complaint And Reason For Visit From encounter dated '09/01/2015 15:00'. Difficulty reading (chief complaint). Description: The 20 year 5 month old female presents for a complete exam ou. Patient has no VA complaints. Reason For Referral Reason For Referral No Information History Of Present Illness Encounter Date Complaint History Of Prese nt Illness Difficulty reading The 20 year 5 month old female presents for a complete exam ou. Patient has no VA complaints. Functional Status Date Functional Assessmen t No Information Instructions Date Instruction Additional Infor nicole Impression/Plan - Ov erall eye exam unremarkable. The vision is very good in both eyes, there is no need for a glasses. Patient will return in 1 year or sooner with problems. Follow up - 1 year complete Assessments Type Assessment Date assessment Routine eye exam Patient Care Teams Name Effective Dates (start - stop) Status Members No Information
--- OUTSIDE RECORDS SUMMARY | 2024-08-08 16:13 | XMS_ITS | Encounter Summary ---
Author Organization [facility] [employer] [facility] Address [address] [place] [address] Phone Care Team Providers Care Grocery Store Manager Name Role Phone Darius Jordan MD Primary Care Provider Encounter Details Date Type Department Care Team (Late st Contact Info) Description 08/09/2017 Orders Only [facility] ProviderDarryl MD [address] [place] [address] Social History Tobacco Use Types Packs/Day Years Used Date Smoking Tobacco: Never Smokeless Tobacco: Never Alcohol Use Standard Drinks/Week Comments No 0 (1 standard drink = 0.6 oz pur e alcohol) Comments No Sex and Gender Information Value Date Recorded Sex Assigned at Not on file Legal Sex Female 6:23 PM RACKER OCTAVE BOARD Gender Identity Female 09/14/2020 5:54 AM RACKER OCTAVE BOARD Sexual Orientation Straight 09/14/2020 5: 54 AM RACKER OCTAVE BOARD documented as of this encounter Plan of Treatment Not on file documented as of this encounter Procedures Procedure Name Priority Date/Time Associated Diagnosis Comments DISCHARGE LABORATORY CUMULATIVE REPORT 08/09/2017 12:00 AM RACKER OCTAVE BOARD documented in this encounter Results * DISCHARGE LABORATORY CUMULATIVE REPORT (08/09/2017 12:00 AM RACKER OCTAVE BOARD) Narrative 08/09/2017 12:00 AM RACKER OCTAVE BOARD Ordered by an unspecified provider. us Historical Provider LAB BLOOD ORDERABLES Ophelia l Result documented in this encounter Visit Diagnoses Not on filedocumented in this encounter Additional Health Concerns Infection Onset Date Last Indicated Resolved Time COVID: Suspected 04/15/2024 04/15/2024 04/15/2024 10:14 AM CDT COVID: Suspected 06/23/2024 06/23/2024 06/24/2024 3:05 AM RACKER OCTAVE BOARD documented as of this encounter Care Teams Grocery Store Manager Relationship Specialty Start Date End Date Darius Jordan MD PCP - General 10/14/16 documented as of this encounter
--- OUTSIDE RECORDS SUMMARY | 2024-08-08 16:13 | XMS_ITS | Encounter Summary ---
Author Organization [facility] [facility] Address [address] [place] [address] Phone Care Team Providers Care Cloth Finishing Range Operator Name Role Phone Darius Jordan MD Primary Care Provider Encounter Details Date Type Department Care Team (Late st Contact Info) Description 08/05/2017 Orders Only [facility] ProviderDarryl MD [address] [place] [address] Social History Tobacco Use Types Packs/Day Years Used Date Smoking Tobacco: Never Smokeless Tobacco: Never Alcohol Use Standard Drinks/Week Comments No 0 (1 standard drink = 0.6 oz pur e alcohol) Comments No Sex and Gender Information Value Date Recorded Sex Assigned at Not on file Legal Sex Female 6:23 PM RUBBISH COLLECTION SUPERVISOR Gender Identity Female 09/14/2020 5:54 AM RUBBISH COLLECTION SUPERVISOR Sexual Orientation Straight 09/14/2020 5: 54 AM RUBBISH COLLECTION SUPERVISOR documented as of this encounter Plan of Treatment Not on file documented as of this encounter Procedures Procedure Name Priority Date/Time Associated Diagnosis Comments DISCHARGE LABORATORY CUMULATIVE REPORT 08/05/2017 12:00 AM RUBBISH COLLECTION SUPERVISOR documented in this encounter Results * DISCHARGE LABORATORY CUMULATIVE REPORT (08/05/2017 12:00 AM RUBBISH COLLECTION SUPERVISOR) Narrative 08/05/2017 12:00 AM RUBBISH COLLECTION SUPERVISOR Ordered by an unspecified provider. us Historical Provider LAB BLOOD ORDERABLES Ophelia l Result documented in this encounter Visit Diagnoses Not on filedocumented in this encounter Additional Health Concerns Infection Onset Date Last Indicated Resolved Time COVID: Suspected 04/15/2024 04/15/2024 04/15/2024 10:14 AM CDT COVID: Suspected 06/23/2024 06/23/2024 06/24/2024 3:05 AM RUBBISH COLLECTION SUPERVISOR documented as of this encounter Care Teams Cloth Finishing Range Operator Relationship Specialty Start Date End Date Darius Jordan MD PCP - General 10/14/16 documented as of this encounter
== END 2024-08-06 08:25 | disposition home or self-care (01) ==
PROVIDERS: PCP Internal Medicine; Visit Provider Otolaryngology
DX: K20.90 Esophagitis, unspecified without bleeding (principal)
CPT/HCPCS: 74220